=== PATIENT | male | born 2000 | race African-American/Black ===

== ENCOUNTER 2021-06-06 15:58 | Emergency (ER) | payer OTHER ==
[2021-06-06 16:17] VITALS: BP 178/100
--- NOTE | 2021-06-06 16:38 | ED Physician Documentation ---
PD HPI URI - Stated complaint Stated Complaint: NEED WORK NOTE - Chief complaint Chief Complaint: Abd Pain - History obtained from History obtained from: Patient - History of Present Illness Timing - onset: Today Timing duration: Hours (onset this morning and lasted several hours.) Timing details: Abrupt onset, Now resolved Associated symptoms: Chills, NVD. No: Fever, Nasal congestion, Dry cough Contributing factors: Other (no noted unusual foods and no sick exposures. Denies excess alcohol.). No: Sick contact, Immunocompromised Similar symptoms before: Has not had sx before Review of Systems Constitutional: denies: Fever, Chills Nose: denies: Rhinorrhea / runny nose, Congestion Throat: denies: Sore throat Respiratory: denies: Cough GI: reports: Nausea, Vomiting, Diarrhea. denies: Abdominal Pain PD PAST MEDICAL HISTORY - Past Medical History Past Medical History: No GI: None - Allergies Allergies/Adverse Reactions: Allergies Allergy/AdvReac Type Severity Reaction Status Date / Time No Known Drug Allergies Allergy Verified 06/06/21 16:12 PD ED PE NORMAL - Vitals Vital signs reviewed: Yes - General General: Alert and oriented X 3, Well developed/nourished - Abdomen Abdomen: Normal bowel sounds, Soft, Non tender, Non distended - Derm Derm: Normal color, Warm and dry - Neuro Neuro: Alert and oriented X 3, No motor deficit, Normal speech Results - Vitals Vitals: Vital Signs - 24 hr 06/06/21 16:13 Temperature 36.8 C Heart Rate 83 Respiratory 16 Rate Blood Pressure 178/100 H O2 Saturation 99 Oxygen O2 Source Room air PD MEDICAL DECISION MAKING - ED course Complexity details: considered differential (had felt ill this morning with nausea and vomiting x few times. Feeling better this afternoon but his command told him he needed to be seen to get work note for today. ), d/w patient ED course: the patient was sick this morning but doing better this afternoon. However was not well enough for work this morning, as vomiting. His command told him to come to ER to get work note for the day. This sounds quite ludicrous on the part of the command and unfortunate waste of the patient's time when not feeling well. Departure - Departure Disposition: 01 Home, Self Care Clinical Impression: Nausea and vomiting Qualifiers: Vomiting type: unspecified Vomiting Intractability: non-intractable Qualified Code(s): R11.2 - Nausea with vomiting, unspecified Condition: Stable Record reviewed to determine appropriate education?: Yes Instructions: ED Nausea Vomiting Follow-Up: LUIS Chao [Provider Group] Forms: Activity restrictions Discharge Date/Time: 06/06/21 17:36
== END 2021-06-06 17:36 | disposition home or self-care (01) ==
LOC: ED 15:58
DX: Z02.89 Encounter for other administrative examinations (principal); R11.2 Nausea with vomiting, unspecified; R19.7 Diarrhea, unspecified
CPT/HCPCS: 99281

== ENCOUNTER 2021-08-06 20:30 | Emergency (ER) | payer OTHER ==
[2021-08-06] MEDS ORDERED: cephALEXin 250 MG CAPSULE PO STA (21:23)
--- NOTE | 2021-08-06 21:25 | ED Physician Documentation ---
History of Present Illness - Stated complaint Stated Complaint: TOOTH PX - Chief complaint Chief Complaint: Heent - History obtained from History obtained from: Patient - Additonal information Additional information: Had multiple teeth pulled last Sunday and is still having pain which increased because he went back to solid foods today. He has facial swelling on that side as well. No fevers. Review of Systems Constitutional: denies: Fever, Chills Eyes: reports: Reviewed and negative Ears: reports: Reviewed and negative Nose: reports: Reviewed and negative PD PAST MEDICAL HISTORY - Past Medical History GI: None - Present Medications Home Medications: Ambulatory Orders Medication Instructions Recorded Confirmed cephALEXin [Keflex] 500 mg PO Q6H #28 cap 08/06/21 - Allergies Allergies/Adverse Reactions: Allergies Allergy/AdvReac Type Severity Reaction Status Date / Time No Known Drug Allergies Allergy Verified 08/06/21 20:33 PD ED PE NORMAL - Vitals Vital signs reviewed: Yes - General General: Alert and oriented X 3, No acute distress - HEENT HEENT: Other (Fresh extractions of #30 and 32 with residual bone and the suture line over #30 with gum swelling and mild facial swelling. No trismus or sublingual edema.) - Neck Neck: Supple, no meningeal sign, No bony TTP - Neuro Neuro: Alert and oriented X 3, Normal speech Results - Vitals Vitals: Vital Signs - 24 hr 08/06/21 20:34 Temperature 36.5 C Heart Rate 68 Respiratory 16 Rate Blood Pressure 160/90 H O2 Saturation 98 Oxygen O2 Source Room air Departure - Departure Disposition: 01 Home, Self Care Clinical Impression: Pain due to dental caries Condition: Good Record reviewed to determine appropriate education?: Yes Instructions: ED Tooth Pain Prescriptions: cephALEXin [Keflex] 500 mg PO Q6H #28 cap Forms: Activity restrictions
[2021-08-06 21:43] VITALS: BP 140/89
== END 2021-08-06 21:43 | disposition home or self-care (01) ==
LOC: ED 20:30
DX: K02.9 Dental caries, unspecified (principal)
CPT/HCPCS: 99282; 99283; A9270